=== PATIENT | male | born 1975 | race Caucasian/White ===

== ENCOUNTER 2017-01-20 14:56 | Emergency (ER) | payer OTHER, BC ==
[~2017-01-20] VITALS: Ht 180.3 cm; Wt 101.7 kg
[2017-01-20 15:02] VITALS: TEMP 36.5; Ht 180.3 cm; Wt 101.7 kg
[2017-01-20] MEDS ORDERED: SODIUM CHLORIDE 0.9% 1000ML 1,000 ML IV STA (15:11)
[2017-01-20] MEDS ORDERED: RANITIDINE HCL 50 MG/100 ML D5W IV STA (15:11)
[2017-01-20] MEDS ORDERED: DiphenhydrAMINE HCL 50 MG/ML VIAL IV STA (15:11)
[2017-01-20] MEDS ORDERED: DEXAMETHASONE SOD INJ 10 MG/ML VIAL IV ONE (15:15)
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
[2017-01-20 17:47] VITALS: BP 114/80; PULSE 76; O2SAT 98
== END 2017-01-20 17:49 | disposition home or self-care (01) ==
LOC: C.EDB 14:57 → C.EDC 17:49
DX: T63.441A Toxic effect of venom of bees, accidental (unintentional), initial encounter (principal); X58.XXXA Exposure to other specified factors, initial encounter

== ENCOUNTER → 2017-05-27 | Outpatient (CLI) | payer OTHER, BC ==
--- NOTE | 2017-05-27 12:07 | DIAGNOSTIC IMAGING REPORT ---
RIGHT KNEE 3 VIEWS CLINICAL HISTORY: Right knee pain. FINDINGS: AP, lateral, and sunrise views of the right knee are compared to study dated 10/08/2012. The skeletal structures are well mineralized. No fracture is seen. There is mild tricompartmental degenerative joint space narrowing, greatest at the patellofemoral articulation. Small marginal osteophytes and patellar enthesophytes are observed. Chondrocalcinosis is seen in the medial and lateral compartments. A small joint effusion is suspected. A calcified fabella is incidentally noted. Mild overlying soft tissue edema is observed. IMPRESSION: 1. Mild soft tissue swelling and joint effusion. No fracture is seen. 2. Mild degenerative change and chondrocalcinosis as above. Electronically signed by: Stefan Herring M.D. 05/27/2017 12:06 PM Dictated Date/Time: 05/27/2017 12:04 PM
== END | disposition home or self-care (01) ==
LOC: C.RAD1850 11:00
PROVIDERS: ATTEND Nurse Practitioner Adult Health
DX: M25.561 Pain in right knee (principal)

== ENCOUNTER → 2017-06-18 | Outpatient (CLI) | payer OTHER, BC ==
--- NOTE | 2017-06-18 10:44 | DIAGNOSTIC IMAGING REPORT ---
R LOWER EXT JOINT WITHOUT CLINICAL HISTORY: 42 years-old Male presenting with R KNEE PAIN, R/O TEAR, fall from trailer in early May with twisting injury, increasing pain and swelling both medially and laterally. TECHNIQUE: Multisequence, multiplanar MR imaging of the right knee was performed without the use of intravenous contrast. IV contrast: None. COMPARISON: Plain radiographs of the right knee from 05/27/2017. FINDINGS: Localizer images: Unremarkable. Bony edema in the posterior tibial plateau at the insertion site of the posterior cruciate ligament. No other sites of bony edema. Less than 50% cartilage thinning of the mid weightbearing portion of the lateral femoral condyle (grade 2 injury). Mild cartilage irregularity in the anterior weightbearing portion of the medial femoral condyle (grade 1 injury). Fissuring of the mid trochlear cartilage (grade 1-2 cartilage injury). Minimal irregularity of the lateral facet cartilage of the patella (grade 1 injury). Linear abnormal signal intensity within the medial meniscus that extends to the inferior articular surface involving the posterior horn and body. Blunting of the free edge. A vertical component of the tear is evident on coronal imaging. Minimal extrusion of the medial meniscus. The meniscocapsular ligaments appear intact. Lateral meniscus intact. Anterior and posterior cruciate ligaments intact. However, there is thickening and slightly abnormal signal intensity of the insertional fibers of the posterior cruciate ligament suggesting sprain. Medial collateral ligament intact. Lateral collateral ligament complex including the biceps femoris tendon, fibular collateral ligament, popliteus tendon, and iliotibial band intact. Quadriceps and patellar tendons intact. Trace knee joint effusion. Parameniscal cysts noted at the anterior intercondylar notch. IMPRESSION: 1. Complex tear of the posterior horn and body of the medial meniscus. 2. Sprain of the posterior cruciate ligament. 3. Mild tricompartmental cartilage irregularities as above. Electronically signed by: New Fay M.D. 06/18/2017 10:43 AM Dictated Date/Time: 06/18/2017 10:34 AM
== END | disposition home or self-care (01) ==
LOC: C.MRI 09:35
DX: S83.521A Sprain of posterior cruciate ligament of right knee, initial encounter (principal); S83.231A Complex tear of medial meniscus, current injury, right knee, initial encounter; W19.XXXA Unspecified fall, initial encounter; M25.561 Pain in right knee